=== PATIENT | female | born 1945 | race Caucasian/White ===

== ENCOUNTER 2023-06-12 07:57 | Day surgery (SDC) | payer MEDICARE, SELFPAY ==
[2023-06-12] VITALS (7 sets, daily range): BP systolic 133–163; BP diastolic 46–72; PULSE 65–81; RESP 16–18; TEMP 36.1–36.3; O2SAT 90–100; BMI 39.2
--- NOTE | 2023-06-12 | COLBX_PTH ---
PATIENT: MELISA SANTOS LOC: EN U#:[id number] AGE/SX: 78/F ROOM: RE06/12/[address]: Dr. Frida Forde MD : 1945 BED: DIS: 06/12/2023 SPEC #: [id number] RECD: 06/12/23 12:06 STATUS: ARPITA REPaul #: [id number] REAL: 06/12/23 00:[address]: Frida Forde DEPT: SURGICAL PATHOLOGY RECD BY: Ynes Rodriguez ENTERED: 06/12/23 13:18 SP TYPE: COLON BX OTHR DR: Dr. Jerry Aguirre DO Tissues: A - Gastric mucous membrane B - Gastric mucous membrane C - Ascending colon D - Ascending colon E - Sigmoid colon biopsy Procedures: Surgery Specimen Level IV HEADER OPERATION: Colonoscopy, EGD with biopsy, polypectomy PRE-OP DIAGNOSIS: Acid reflux, bloating, diarrhea, hemorrhoids TISSUE SUBMITTED: A - Antrum for H. pylori and pathology, B - Gastric body polyp, C - Ascending colon polyp, D - Ascending colon polyp x3, E - Sigmoid abnormal mucosa MICROSCOPIC DIAGNOSIS A. Gastric antrum, biopsy: Chronic gastritis. See comment. B. Gastric body polyp, biopsy: Fundic gland polyp. C. Ascending colon polyp, biopsy: Tubular adenoma. D. Ascending colon polyp, biopsy: Fragments of tubular adenoma. E. Sigmoid colon, biopsy: Ischemic colitis. AM:liam 06/13/2023 COMMENT A. The results of immunohistochemistry for Helicobacter pylori will be reported separately ([id number]). MICROSCOPIC DESCRIPTION Slides are reviewed. GROSS DESCRIPTION A - Received in fixative is one container labeled with the patient's name and designated antrum biopsy. The specimen consists of one irregular fragment of light blevins soft tissue that measures 0.5 x 0.5 x 0.1 cm. The specimen is totally submitted in one cassette. B - Received in fixative is one container labeled with the patient's name and designated gastric body polyp. The specimen consists of one irregular fragment of light blevins soft tissue that measures 0.6 x 0.6 x 0.1 cm. The specimen is totally submitted in one cassette. C - Received in fixative is one container labeled with the patient's name and designated ascending colon polyp. The specimen consists of one irregular fragment of light blevins soft tissue that measures 0.5 x 0.3 x 0.1 cm. The specimen is totally submitted in one cassette. D - Received in fixative is one container labeled with the patient's name and designated ascending colon polyp. The specimen consists of multiple irregular fragments of light blevins soft tissue that in aggregate measure 1.0 x 0.6 x 0.1 cm. The specimen is totally submitted in one cassette. E - Received in fixative is one container labeled with the patient's name and designated sigmoid mucosa. The specimen consists of two irregular fragments of light blevins soft tissue that in aggregate measure 0.5 x 0.5 x 0.1 cm. The specimen is totally submitted in one cassette. / AM:liam 06/12/2023 TC:3 CPT: 17742 x5
[2023-06-12] MEDS: Lactated Ringers 1,000 ML 15 ML IV (08:15)
--- NOTE | 2023-06-12 08:34 | H&P.OPEN ---
HPI - General General Date of Service: 06/12/23 HPI Narrative MELISA SANTOS, is a 78 F who presents for EGD and colonoscopy. Patient states she has had an additional episode of the nausea vomiting diarrhea since her office visit. Patient is currently on 40 mg pantoprazole and states that it has improved her symptoms some. 05/08/23 office visit HPI HPI: 78-year-old female presents for EGD and colonoscopy. Patient states that she has had issues with bloating and episodes of nausea and vomiting and diarrhea with this as well. Patient first had the episode in January that maybe she had the flu lasted for 1 to 2 days then she was able to get some Zofran and Imodium. Patient had a similar episode in March but shorter due to having the medication on hand seen within April. Patient states that for years she is had to use the bathroom after eating and specially dairy or pizza. Patient's last colonoscopy was in [address] Wetzel--Noted to have nonthrombosed internal/external hemorrhoids diverticulosis and a tortuous colon given 10 years before needing repeat. Patient currently denies any abdominal pain. Patient has been on omeprazole 20 mg for years states that it does control her previous symptoms. Patient has been taking her omeprazole and levothyroxine at the same time in the morning. [facility] Medical History (Updated 06/06/23 @ 12:01 by Melba Cevallos) Asthma Back pain Cancer Gastric reflux High cholesterol History of edema History of hiatal hernia History of IBS History of irregular heartbeat History of pain when walking Hypertension Injury of head and neck Leg cramps Non-smoker Post-menopausal Thyroid cancer Thyroid disease Wears glasses Wears partial dentures Home Medications amlodipine 5 mg tablet 5 mg PO DAILY 05/08/23 [History Last Taken 06/11/23] ascorbic acid (vitamin C) 500 mg capsule,extended release 500 mg PO DAILY 05/08/23 [History Last Taken Unknown] aspirin 81 mg tablet,delayed release 81 mg PO DAILY 05/08/23 [History Last Taken 06/07/23] cholecalciferol (vitamin D3) 25 mcg (1,000 unit) tablet 25 mcg PO DAILY 05/08/23 [History Last Taken Unknown] docusate sodium 100 mg capsule (Colace) 100 mg PO DAILY 05/08/23 [History Last Taken Unknown] fluticasone furoate 100 mcg-vilanterol 25 mcg/dose inhalation powder (Breo Ellipta) 1 inh inhalation DAILY 05/08/23 [History Last Taken Unknown] levothyroxine 150 mcg capsule 150 mcg PO DAILY 05/08/23 [History Last Taken 06/12/23] losartan 100 mg tablet 100 mg PO DAILY 05/08/23 [History Last Taken 06/12/23] metoprolol tartrate 25 mg tablet 25 mg PO DAILY 05/08/23 [History Last Taken 06/11/23] omega 4-nrf-zsg-fish oil 300 mg-1,000 mg capsule (Fish Oil) 1 cap PO DAILY 05/08/23 [History Last Taken Unknown] pantoprazole 40 mg tablet,delayed release 40 mg PO DAILY #30 tabs 05/08/23 [Rx Last Taken Unknown] pravastatin 80 mg tablet 80 mg PO DAILY 05/08/23 [History Last Taken Unknown] vitamin E (dl, acetate) 45 mg (100 unit) capsule 45 mg PO DAILY 05/08/23 [History Last Taken Unknown] potassium chloride 10 mEq tablet,extended release(part/cryst) 10 meq PO DAILY 06/06/23 [History Last Taken Unknown] triamterene 37.5 mg-hydrochlorothiazide 25 mg capsule 1 cap PO DAILY 06/06/23 [History Last Taken Unknown] Allergy/AdvReac Type Severity Reaction Status Date / Time latex Allergy Intermediate Rash Verified 06/12/23 08:27 lidocaine Allergy Intermediate Swelling Verified 06/12/23 08:27 Tetracyclines Allergy Intermediate Swelling Verified 06/12/23 08:27 Family History (Updated 05/08/23 @ 09:22 by Viki Davidson) Mother Colon cancer Heart disease Hypertension Father Heart disease Hypertension CVA (cerebral vascular accident) Surgical History (Updated 06/06/23 @ 12:01 by Melba Cevallos) H/O: hysterectomy Hx of partial thyroidectomy Hx of thyroidectomy Hx of tonsillectomy Social History (Updated 05/08/23 @ 09:23 by Viki Davidson) Smoking Status: Never smoker alcohol intake: never substance use type: does not use Past Medical/Surgical History Planned Operation Planned Operative Procedure/s: COLONOSCOPY/EGD Previous Hospitalizations/Surgeries HX Hospitalizations: No Any Problems With Anesthesia: No You/Your Family Experience Fever (Hyperthermia) With Anes: No Cholinesterase deficiency: No Cardiovascular Hx Hypertension: Yes (CONTROLLED ON MED) Respiratory Hx Sleep Apnea: No Hx Respiratory Tract Infection/Cold (presently): No Do You Snore Loudly (louder than talking or can be heard): No Do You Often Feel Tired/ Fatigued/ Sleepy Dring Daytime?: No Has Anyone Observed You Stop Breathing During Sleep?: No Result (for STOP score): Negative Smoking Status: Never smoker Neurological Does patient have nerve stimulator: No Miscellaneous Recent Exposure to Contagious Disease: No Allergies latex Allergy (Intermediate, Verified 06/12/23 08:27) Rash lidocaine Allergy (Intermediate, Verified 06/12/23 08:27) Swelling Tetracyclines Allergy (Intermediate, Verified 06/12/23 08:27) Swelling Discharge Is Pt Admitted From a Detention, or a Assisted: No After D/C, Where Do you Plan to Go: Return Home Vital Signs Vital Signs Vital Signs: 06/12/23 08:29 06/12/23 08:29 Temperature 97.1 F L Temperature Source Temporal Pulse Rate 81 Respiratory Rate 16 Respiratory Pattern Hyperpnea Blood Pressure 163/72 H Blood Pressure Mean 102 Blood Pressure Source Monitor Blood Pressure Position Semi-Fowlers Blood Pressure Location Left Arm Pulse Ox 100 Oxygen Delivery Method Room Air Weight Weight: 235 lb 14.314 oz Body Mass Index (BMI) 39.2 Physical Exam Const alert, oriented x3 and no apparent distress HEENT normocephalic and head/scalp atraumatic Resp normal respiratory effort Cardio regular rate GI soft to palpation and non-tender; Negative for non-distended Palpation: Negative for guarding Extremity no clubbing, cyanosis or edema Neuro CN's II-XII intact bilaterally Psych mental status grossly normal Assessment & Plan Assessment/Plan (1) Acid reflux: (2) Bloating symptom: (3) Diarrhea: (4) Hemorrhoids: Surgery Risks - Colonoscopy I discussed with the patient the risks of the procedure: Yes Risks Include but are not Limited To: Discussed EGD and colonoscopy with patient. Risks include but are not limited to: Bleeding, perforation requiring further surgery, inability to complete colonoscopy requiring barium enema.
--- NOTE | 2023-06-12 09:00 | IMM_PTH ---
PATIENT: MELISA SANTOS LOC: EN U#:[id number] AGE/SX: 78/F ROOM: RE06/12/[address]: Dr. Frida Forde MD : 1945 BED: DIS: 06/12/2023 SPEC #: [id number] RECD: 06/12/23 14:16 STATUS: ARPITA REQ #: [id number] REAL: 06/12/23 09:[address]: Frida Forde DEPT: IMMUNOHISTOCHEMISTRY RECD BY: Dina See ENTERED: 06/12/23 14:16 SP TYPE: IMMUNO OTHR DR: Dr. Jerry Aguirre, Tissues: A - Stomach, NOS Procedures: H Pylori (initial) PHYSICIAN & INSTITUTION [place] [id number] SPECIMEN INFORMATION: Tissue Source: A - Antrum Clinical Info: Acid reflux, bloating symptom, diarrhea, hemorrhoids Specimen Number: [id number] CPT code: 26094 METHODOLOGY: Deparaffinized sections of prefer/formalin-fixed tissue or PAP/DQ stained slides are incubated with monoclonal/polyclonal antibodies/oligonucleotide probes. Localization is made via biotin free immunoperoxidase method. Appropriate controls are performed and reacted as expected. Results on target cell population are indicated in the following table: RESULTS: ANTIBODY / CLONE RESULT Block A H Pylori (polyclonal) negative These tests were developed and their performance characteristics determined by [facility]. They may not have been cleared or approved by the U.S. Food and Drug Administration. The FDA has determined that such clearance or approval is not necessary. The above immunohistochemical/dualISH markers are ordered and reviewed by the Pathologist. INTERPRETATION: A. Antrum, biopsy: Negative for Helicobacter pylori organisms. AM:liam 06/13/2023
--- NOTE | 2023-06-12 09:36 | OP.CCLET_ITS ---
06/12/2023 Jerry Aguirre [address] [place] [address] Re : Upper GI endoscopy procedure for Jennifer Hill Dear Dr. Aguirre This procedure was performed on Monday, June 12, 2023. My impressions and recommendations are as follows: Impressions : - Z-line regular, 35 cm from the incisors. - Medium-sized hiatal hernia. - Multiple gastric polyps. Resected and retrieved. - Normal examined duodenum. - Erythematous mucosa in the antrum. Biopsied. Recommendations : - Await pathology results. - Discharge patient to home. - Resume previous diet. - Continue present medications. My findings are described in the full procedure note, which is enclosed. If I can be of further assistance, please feel free to contact me at Doctor phone number(s): , Work: . Sincerely, MD Frida Villagran MD 06/12/2023 9:35:20 AM This report has been signed electronically.
--- NOTE | 2023-06-12 09:36 | OP.EGD_ITS ---
Patient Name: Jennifer Hill Procedure Date: 06/12/2023 8:41 AM Date of : 1945 Age: 78 Procedure: Upper GI endoscopy Indications: Heartburn Providers: Frida Forde MD Referring MD: Frida Forde MD Medicines: Monitored Anesthesia Care Patient Profile: This is a 78 year old female. Complications: No immediate complications. Procedure: Pre-Anesthesia Assessment: - Prior to the procedure, a History and Physical was performed, and patient medications and allergies were reviewed. The patient's tolerance of previous anesthesia was also reviewed. The risks and benefits of the procedure and the sedation options and risks were discussed with the patient. All questions were answered, and informed consent was obtained. Prior Anticoagulants: The patient has taken no anticoagulant or antiplatelet agents. ASA Grade Assessment: Per anesthesia. After reviewing the risks and benefits, the patient was deemed in satisfactory condition to undergo the procedure. After obtaining informed consent, the endoscope was passed under direct vision. Throughout the procedure, the patient's blood pressure, pulse, and oxygen saturations were monitored continuously. The was introduced through the mouth, and advanced to the second part of duodenum. The upper GI endoscopy was accomplished without difficulty. The patient tolerated the procedure well. Scope In: 8:53:54 AM Scope Out: 9:00:03 AM Total Procedure Duration Time 0 hours 6 minutes 9 seconds Findings: The Z-line was regular and was found 35 cm from the incisors. A medium-sized hiatal hernia was present. Multiple less than 5 mm semi-pedunculated polyps with no bleeding and no stigmata of recent bleeding were found in the gastric body. The polyp was removed with a cold biopsy forceps. Resection and retrieval were complete. The examined duodenum was normal. Mildly erythematous mucosa without bleeding was found in the gastric antrum. Biopsies were taken with a cold forceps for histology. Biopsies were taken with a cold forceps for Helicobacter pylori testing. Impression: - Z-line regular, 35 cm from the incisors. - Medium-sized hiatal hernia. - Multiple gastric polyps. Resected and retrieved. - Normal examined duodenum. - Erythematous mucosa in the antrum. Biopsied. Recommendation: - Await pathology results. - Discharge patient to home. - Resume previous diet. - Continue present medications. Procedure Code(s): --- Professional --- 77041, Esophagogastroduodenoscopy, flexible, transoral; with biopsy, single or multiple Diagnosis Code(s): --- Professional --- K44.9, Diaphragmatic hernia without obstruction or gangrene K31.7, Polyp of stomach and duodenum K31.89, Other diseases of stomach and duodenum R12, Heartburn CPT copyright 2021 [employer]. All rights reserved. The codes documented in this report are preliminary and upon staple side laster review may be revised to meet current compliance requirements. MD Frida Villagran MD 06/12/2023 9:35:20 AM This report has been signed electronically. Number of Addenda: 0 Note Initiated On: 06/12/2023 8:41 AM
--- NOTE | 2023-06-12 09:42 | OP.CCLET_ITS ---
06/12/2023 Jerry Aguirre [address] [place] [address] Re : Colonoscopy procedure for Jennifer Hill Dear Dr. Aguirre This procedure was performed on Monday, June 12, 2023. My impressions and recommendations are as follows: Impressions : - Hemorrhoids found on perianal exam. - Non-bleeding external and internal hemorrhoids. - Four less than 5 mm polyps in the ascending colon, removed with a cold biopsy forceps. Resected and retrieved. - Erythematous and inflamed mucosa in the sigmoid colon. Biopsied. - The examination was otherwise normal. Recommendations : - Discharge patient to home. - Resume previous diet. - Continue present medications. - Await pathology results. - Repeat colonoscopy in 3 - 5 years for surveillance of multiple polyps. My findings are described in the full procedure note, which is enclosed. If I can be of further assistance, please feel free to contact me at Doctor phone number(s): , Work: . Sincerely, MD Frida Villagran MD 06/12/2023 9:41:52 AM This report has been signed electronically.
--- NOTE | 2023-06-12 09:42 | OP.COLON_ITS ---
Patient Name: Jennifer Hill Procedure Date: 06/12/2023 9:00 AM Date of : 1945 Age: 78 Procedure: Colonoscopy Indications: Diarrhea Providers: Frida Forde MD Referring MD: Frida Forde MD Medicines: Monitored Anesthesia Care Patient Profile: This is a 78 year old female. Last Colonoscopy: 2015. Complications: No immediate complications. Procedure: Pre-Anesthesia Assessment: - Prior to the procedure, a History and Physical was performed, and patient medications and allergies were reviewed. The patient's tolerance of previous anesthesia was also reviewed. The risks and benefits of the procedure and the sedation options and risks were discussed with the patient. All questions were answered, and informed consent was obtained. Prior Anticoagulants: The patient has taken no anticoagulant or antiplatelet agents. ASA Grade Assessment: Per anesthesia. After reviewing the risks and benefits, the patient was deemed in satisfactory condition to undergo the procedure. After I obtained informed consent, the scope was passed under direct vision. Throughout the procedure, the patient's blood pressure, pulse, and oxygen saturations were monitored continuously. The was introduced through the anus and advanced to the cecum, identified by appendiceal orifice and ileocecal valve. The colonoscopy was somewhat difficult due to a tortuous colon. The patient tolerated the procedure well. The quality of the bowel preparation was good. Scope In: 9:01:42 AM Scope Withdrawal Time 0 hours 9 minutes 42 seconds Scope Out: 9:29:10 AM Total Procedure Duration Time 0 hours 27 minutes 28 seconds Findings: Hemorrhoids were found on perianal exam. Non-bleeding external and internal hemorrhoids were found. The hemorrhoids were Grade III (internal hemorrhoids that prolapse but require manual reduction). Four sessile polyps were found in the ascending colon. The polyps were less than 5 mm in size. These polyps were removed with a cold biopsy forceps. Resection and retrieval were complete. A localized area of moderately erythematous and inflamed mucosa was found in the sigmoid colon. Biopsies were taken with a cold forceps for histology. The exam was otherwise without abnormality. Impression: - Hemorrhoids found on perianal exam. - Non-bleeding external and internal hemorrhoids. - Four less than 5 mm polyps in the ascending colon, removed with a cold biopsy forceps. Resected and retrieved. - Erythematous and inflamed mucosa in the sigmoid colon. Biopsied. - The examination was otherwise normal. Recommendation: - Discharge patient to home. - Resume previous diet. - Continue present medications. - Await pathology results. - Repeat colonoscopy in 3 - 5 years for surveillance of multiple polyps. Procedure Code(s): --- Professional --- 06810, Colonoscopy, flexible; with biopsy, single or multiple Diagnosis Code(s): --- Professional --- K64.2, Third degree hemorrhoids D12.2, Benign neoplasm of ascending colon K63.89, Other specified diseases of intestine K52.9, Noninfective gastroenteritis and colitis, unspecified R19.7, Diarrhea, unspecified CPT copyright 2021 [employer]. All rights reserved. The codes documented in this report are preliminary and upon carpet winder review may be revised to meet current compliance requirements. MD Frida Villagran MD 06/12/2023 9:41:52 AM This report has been signed electronically. Number of Addenda: 0 Note Initiated On: 06/12/2023 9:00 AM
== END 2023-06-12 10:51 | disposition home or self-care (01) ==
LOC: EN 08:10 → AC 08:12
PROVIDERS: PCP Preventive Medicine Occupational Medicine; Referring Provider Preventive Medicine Occupational Medicine; Visit Provider Surgery
PROC: 0DJD8ZZ Inspection of Lower Intestinal Tract, Via Natural or Artificial Opening Endoscopic (ICD-10-PCS; CPT 45378; principal; 2023-06-12 08:55)
DX: K55.9 Vascular disorder of intestine, unspecified (principal); K21.9 Gastro-esophageal reflux disease without esophagitis; Z79.82 Long term (current) use of aspirin; I10 Essential (primary) hypertension; E78.00 Pure hypercholesterolemia, unspecified; K31.7 Polyp of stomach and duodenum; K44.9 Diaphragmatic hernia without obstruction or gangrene; J45.909 Unspecified asthma, uncomplicated; Z79.899 Other long term (current) drug therapy; K64.2 Third degree hemorrhoids; K64.4 Residual hemorrhoidal skin tags; K29.50 Unspecified chronic gastritis without bleeding; D12.2 Benign neoplasm of ascending colon; Z79.890 Hormone replacement therapy; E07.9 Disorder of thyroid, unspecified
CPT/HCPCS: 45380; 43239; 88305; 88342; J7120; J2405

== ENCOUNTER → 2023-07-10 | Outpatient (CLI) | payer MEDICARE, SELFPAY ==
--- NOTE | 2023-07-10 13:12 | CT_ITS ---
STUDY: CT ABDOMEN AND PELVIS WITH CONTRAST REASON FOR EXAM: Female, 78 years old. ischemic colitis, history of RADIATION DOSAGE (If Supplied By Facility): CTDIvol = ( 19.96 ) mGy, DLP = ( 1278.80 ) mGycm TECHNIQUE: Transaxial images were obtained from the dome of the diaphragm to the symphysis pubis without oral contrast. Oral and amp; IV Readi-CAT and amp; 100mL Isovue-370 was administered. Sagittal and coronal images were reconstructed. Individualized dose optimization techniques were used for this CT. COMPARISON: None. FINDINGS: The visualized lung bases are unremarkable. The visualized portions of the heart are within normal limits. Normal liver. Possible cholelithiasis. No significant dilatation of the extrahepatic biliary system. Normal spleen. Normal pancreas. Normal bilateral adrenal glands. 3.4 cm cyst in the right kidney. Normal left kidney. Small hiatal hernia. Normal small intestine. Normal colon. The appendix is visualized and appears normal. Normal abdominal aorta. Normal inferior vena cava. Normal retroperitoneum. Normal urinary bladder. There is a pessary in the pelvis. Normal abdominal wall. Normal osseous structures. CT/Abdomen/Pelvis WITH Contrast IMPRESSION: Right renal cyst Small hiatal hernia. Possible cholelithiasis. Electronically Signed: Jus Reveles DO at 23:29 EST ,
[2023-07-10 13:42] LABS: CREATININE FINGERSTICK 1.2 mg/dL (0.55-1.02)
== END | disposition home or self-care (01) ==
LOC: CT 13:09
PROVIDERS: PCP Preventive Medicine Occupational Medicine; Referring Provider Surgery; Visit Provider Surgery
DX: Z87.19 Personal history of other diseases of the digestive system (principal)
CPT/HCPCS: 74177; Q9967

== ENCOUNTER 2024-07-22 10:43 | Emergency (ER) | payer MEDICARE, SELFPAY ==
[2024-07-22 10:43] VITALS: BP 174/70; PULSE 72; RESP 16; TEMP 36.4; O2SAT 98; BMI 41.7
--- NOTE | 2024-07-22 11:03 | CT_ITS ---
INDICATION: head injury EXAMINATION: CT BRAIN - CT Head or Brain W/O Contrast Injection TECHNIQUE: Multiple axial images were obtained of the head without intravenous contrast. The protocol utilizes one or more of the following dose reduction techniques: automated exposure control, adjustment of mA and/or kV according to patient size,and/or use of iterative reconstruction technique. IV Contrast dosage and agent: None. RADIATION DOSAGE (If Supplied By Facility): CTDIvol = ( 44.99 ) mGy, DLP = ( 812.98 ) mGycm COMPARISON: No relevant prior comparison study available FINDINGS: BRAIN PARENCHYMA: No intra- or extra-axial hemorrhage. No evidence of acute infarct. No intracranial mass or mass effect. There is preservation of the vincent/white matter interface. Periventricular deep white matter changes likely due to chronic microvascular disease. Posterior fossa structures are unremarkable. CSF SPACES: Appropriate for age. No hydrocephalus. Basal cisterns are patent. CALVARIUM, SKULL BASE, PARANASAL SINUSES AND MASTOID AIR CELLS: Mild mucosal thickening of the right maxillary sinus. Probable retention cyst in the left maxillary sinus. No discrete lytic or blastic abnormalities. ORBITS: Both globes, extraocular muscles, optic nerves and retrobulbar fat appear unremarkable. CT/Brain/Head without Contrast IMPRESSION: No acute intracranial process. Electronically Signed: Aravind Sosa MD at 11:51 EST ,
--- NOTE | 2024-07-22 11:04 | EDS_ITS ---
HPI HPI - Fall History of Present Illness Chief Complaint: Fall Informant: patient Narrative Narrative: Mechanical fall walking back into her dentist office prior to arrival. She had a cleaning done she forgot something she ran and tripped on the entrance of the door. Pain into her left wrist. She is right-hand dominant. Bruising to her upper lip, she states her dental plate was bent. Denies loss of conscious. Denies headache. Denies neck or back pain. Denies any chest wall pain. Mild pain right knee. She able to ambulate. She takes baby aspirin, no other blood thinners. She has tolerated tramadol in the past. She does not follow an orthopedist. Prior similar symptoms: No PFSH PFSH Medical History History of ischemic colitis Wears partial dentures Wears glasses Post-menopausal Cancer Thyroid disease High cholesterol Back pain Injury of head and neck History of IBS History of hiatal hernia Gastric reflux Non-smoker Asthma Leg cramps History of pain when walking Hypertension History of edema History of irregular heartbeat Thyroid cancer Home Medications ?Medication ?Instructions ?Recorded ?Last Taken ?Type amlodipine 5 mg tablet 5 mg PO DAILY 05/08/23 06/11/23 History ascorbic acid (vitamin C) 500 mg 500 mg PO DAILY 05/08/23 Unknown History capsule,extended release aspirin 81 mg tablet,delayed 81 mg PO DAILY 05/08/23 06/07/23 History release cholecalciferol (vitamin D3) 25 25 mcg PO DAILY 05/08/23 Unknown History mcg (1,000 unit) tablet docusate sodium 100 mg capsule 100 mg PO DAILY 05/08/23 Unknown History (Colace) fluticasone furoate 100 1 inh inhalation DAILY 05/08/23 Unknown History mcg-vilanterol 25 mcg/dose inhalation powder (Breo Ellipta) levothyroxine 150 mcg capsule 150 mcg PO DAILY 05/08/23 06/12/23 History losartan 100 mg tablet 100 mg PO DAILY 05/08/23 06/12/23 History omega 4-pxn-jzp-fish oil 300 1 cap PO DAILY 05/08/23 Unknown History mg-1,000 mg capsule (Fish Oil) vitamin E (dl, acetate) 45 mg (100 45 mg PO DAILY 05/08/23 Unknown History unit) capsule potassium chloride 10 mEq 10 meq PO DAILY 06/06/23 Unknown History tablet,extended release(part/cryst) pantoprazole 40 mg tablet,delayed 40 mg PO DAILY #90 tabs 06/27/23 Unknown Rx release azithromycin 250 mg tablet 250 mg PO DAILY 07/22/24 Unknown History metoprolol succinate 50 mg 50 mg PO DAILY 07/22/24 Unknown History tablet,extended release 24 hr rosuvastatin 10 mg tablet 10 mg PO QHS 07/22/24 Unknown History tramadol 50 mg tablet 50 mg PO Q6H PRN pain #12 tabs 07/22/24 Unknown Rx triamterene 37.5 1 tab PO DAILY 07/22/24 Unknown History mg-hydrochlorothiazide 25 mg tablet Allergy/AdvReac Type Severity Reaction Status Date / Time latex Allergy Intermediate Rash Verified 07/22/24 10:43 lidocaine Allergy Intermediate Swelling Verified 07/22/24 10:43 Tetracyclines Allergy Intermediate Swelling Verified 07/22/24 10:43 Family History Mother Colon cancer Heart disease Hypertension Father Heart disease Hypertension CVA (cerebral vascular accident) Surgical History Hx of tonsillectomy Hx of partial thyroidectomy Hx of thyroidectomy H/O: hysterectomy Social History Smoking Status: Never smoker alcohol intake: never substance use type: does not use ROS ROS ED Constitutional Constitutional ED: Denies chills, fever(s) or sweats Eyes Eyes: Denies change in vision ENT ENT ED: Denies dysphagia or sore throat Cardiovascular Cardiovascular: Denies chest pain, leg edema, palpitations or racing heartbeat Respiratory/Chest Respiratory/Chest: Denies cough, dyspnea or dyspnea on exertion Gastrointestinal Gastrointestinal: Denies abdominal pain, diarrhea, nausea or vomiting Genitourinary Genitourinary ED: Denies dysuria, hematuria or urinary frequency Musculoskeletal Musculoskeletal: Reports extremity pain and other Details: Left wrist pain, right knee discomfort ; Denies back pain or neck pain Integumentary Reports other Details: Bruising to lip. ; Denies rash Neurologic Neurologic: Denies headache(s), paresthesias or weakness EXAM Physical Exam Const Vital Signs: 07/22/24 10:43 07/22/24 10:54 Temperature 97.5 F L Temperature Source Temporal Pulse Rate 72 Respiratory Rate 16 Respiratory Effort Normal Non-Labored Respiratory Depth Normal Respiratory Pattern Normal Blood Pressure 174/70 H Blood Pressure Mean 104 Pulse Ox 98 Oxygen Delivery Method Room Air Positive well nourished and well developed Constitutional Narrative: GCS 15. General Appearance ED: well developed and NAD HEENT Reports moist mucous membranes HEENT Narrative: Bruising right upper lip, there is no laceration. There is loosening to tooth #7. She is missing #6, as decayed down to gums #8, missing #9. No facial bone tenderness. normocephalic Eyes EOMs intact bilaterally and conjunctivae normal Eyes Narrative: No proptosis or entrapment. General Eye ED: Yes normal appearance of both eyes Neck full ROM, no lymphadenopathy and supple Neck Narrative: No midline tenderness no step-offs or General: Negative for tenderness Chest Wall inspection of chest normal and palpation of chest normal Chest: Negative for tenderness Resp normal respiratory effort and normal air movement Effort and Inspection: symmetric chest movement; Negative for respiratory distress Cardio regular rate, regular rhythm and no murmurs Peripheral Pulses: pulses 2+ throughout GI normal to inspection, nondistended, normoactive bowel sounds and non-tender Palpation: Negative for guarding or rebound tenderness present Back/Spine no CVA tenderness and no thoracic nor lumbar tenderness Back/Spine Narrative: No midline tenderness or step-offs. Extremity Extremity Narrative: Right upper extremity: Full range of motion without any tenderness. Soft compartments. Pulse intact distally. Left upper extremity: No shoulder or elbow tenderness. There is swelling distal radius with slight deformity. No snuffbox signs. No hand tenderness. Skin intact. Soft compartments. Neuro vas intact distally. Lower extremities: Negative logroll bilaterally. There is very small right infrapatellar contusion. No patellar tenderness. No proximal fibular tenderness. No deformities. Pulses are intact distally. General Extremety ED: Yes tenderness; Negative for edema General Extremity: Negative for edema Neuro oriented x3, CN's II-XII intact bilaterally and no sensory deficits noted Sensorium / Orientation: awake and alert Skin no rashes or lesions noted and no wounds MDM MDM MDM Narrative Medical decision making narrative: Interventions / MDM: Differential diagnosis: Lip contusion, dental loosening, wrist fracture, knee contusion Diagnosis considered but do not suspect: Intracranial hemorrhage however CT negative. My EKG interpretation: N/A Imaging independently reviewed and interpreted by myself: CT brain: No acute process. Left wrist x-ray 3 views distal radius fracture intra-articular. No displacement. External documents reviewed: N/A Test considered but not ordered:N/A ED course: Mechanical fall no focal deficit GCS 15. Lip contusions light dental loosening. Will obtain CT brain. She has left wrist swelling with slight deformity concerning for fracture. X-ray ordered. She is ordered for p.o. tramadol. X-ray confirms fracture. She was placed in AP plaster splint. She is given follow-up with orthopedics. Prescription for tramadol written. She is on Colace at home. CT brain negative. Procedure note: Splinting: Nylon sleeve was placed, Kerlix dressing with padding at the wrist. 3 inch AP plaster splint was placed. Kayode wrap to secure. Neuro vas intact post splinting. Patient tolerated procedure well. Re-evaluation: stable Disposition discussed with patient/family/significant other: Patient and daughter Case discussed with consulting clinician: N/A This note was generated with [employer] dictation software. It may contain incorrect words, spelling, and punctuation that were not noted in checking the note before signing. Radiography Diagnostic Testing: Clinical Impression(s) from Imaging Studies Brain CT 07/22/24 11:03 IMPRESSION: No acute intracranial process. Electronically Signed: Aravind Sosa MD at 11:51 EST Reading Location ID and State: [facility] / [place] Tel , Service support , Wrist X-Ray 07/22/24 11:15 IMPRESSION: Intra-articular fracture of the distal radius. Electronically Signed: Aravind Sosa MD at 11:52 EST , Discharge Plan Triage Chief Complaint: Fall ED Provider: Ruslan Riley Dx/Rx/DC Orders Clinical Impression: Closed fracture of left wrist, Contusion of lip, Dental injury, Contusion of knee, right Instructions: ED Facial Contusion, ED Fracture, Wrist, General Prescriptions: New tramadol 50 mg tablet 50 mg PO Q6H PRN (Reason: pain) Qty: 12 0RF No Action aspirin 81 mg tablet,delayed release (DR/EC) 81 mg PO DAILY omega 7-bqb-[id number]-fish oil [Fish Oil] 300-1,000 mg capsule 1 cap PO DAILY ascorbic acid (vitamin C) 500 mg capsule, extended release 500 mg PO DAILY vitamin E (dl, acetate) 45 mg (100 unit) capsule 45 mg PO DAILY losartan 100 mg tablet 100 mg PO DAILY cholecalciferol (vitamin D3) 25 mcg (1,000 unit) tablet 25 mcg PO DAILY levothyroxine 150 mcg capsule 150 mcg PO DAILY amlodipine 5 mg tablet 5 mg PO DAILY docusate sodium [Colace] 100 mg capsule 100 mg PO DAILY fluticasone furoate-vilanterol [Breo Ellipta] 100-25 mcg/dose blister with device 1 inh inhalation DAILY potassium chloride 10 mEq tablet,ER particles/crystals 10 meq PO DAILY metoprolol succinate 50 mg tablet extended release 24 hr 50 mg PO DAILY azithromycin 250 mg tablet 250 mg PO DAILY triamterene-hydrochlorothiazid 37.5-25 mg tablet 1 tab PO DAILY rosuvastatin 10 mg tablet 10 mg PO QHS pantoprazole 40 mg tablet,delayed release (DR/EC) 40 mg PO DAILY Qty: 90 3RF Rx Instructions: In the p.m. due to levothyroxine Primary Care Provider: Holger Edward Referrals: Samuel López DO [Med Staff - Active Staff] - 3-5 Days Jerry Aguirre DO [Non-Staff] - Activity Restrictions/Additional Instructions: Head CT negative. Distal radius fracture seen on x-ray intra-articular. No displacement. Maintain splint. Continue to ice and elevate. Take tramadol as prescribed. Continue your Colace at home. Follow-up with Dr. López. Print Language: Slovenian Disposition Disposition: Home, Self Care Discharge Date/Time: 07/22/24 12:22
[2024-07-22] MEDS: traMADol 50 MG Tablet PO (11:07)
--- NOTE | 2024-07-22 11:15 | RAD_ITS ---
INDICATION: injury EXAMINATION/TECHNIQUE: X-RAY - LEFT XR Wrist Min 3 Views 3 VIEWS COMPARISON: No relevant prior comparison study available FINDINGS: SOFT TISSUES: Soft tissue swelling of the wrist. No radiopaque foreign body. BONES/JOINTS: Intra-articular displaced fracture of the distal radius. No evidence of dislocation. Degenerative changes of the carpometacarpal joint of the thumb. No sclerotic or destructive changes observed. RAD/Wrist min 3 Views IMPRESSION: Intra-articular fracture of the distal radius. Electronically Signed: Aravind Sosa MD at 11:52 EST ,
== END 2024-07-22 12:22 | disposition home or self-care (01) ==
PROVIDERS: Emergency Provider Emergency Medicine; PCP Family Medicine; Visit Provider Emergency Medicine
DX: S52.572A Other intraarticular fracture of lower end of left radius, initial encounter for closed fracture (principal); Z79.82 Long term (current) use of aspirin; E78.00 Pure hypercholesterolemia, unspecified; S00.531A Contusion of lip, initial encounter; S80.01XA Contusion of right knee, initial encounter; I10 Essential (primary) hypertension; K21.9 Gastro-esophageal reflux disease without esophagitis; J45.909 Unspecified asthma, uncomplicated; Z79.899 Other long term (current) drug therapy; W01.0XXA Fall on same level from slipping, tripping and stumbling without subsequent striking against object, initial encounter
CPT/HCPCS: 29125; 70450; 73110; 99282